=== PATIENT | male | born 2000 | race Caucasian/White ===

== ENCOUNTER 2022-08-26 23:09 | Emergency (ER) | payer OTHER ==
[2022-08-26 23:30] VITALS: BP 130/79; PULSE 91; RESP 16; TEMP 99; BMI 22.8
[2022-08-26] MEDS ORDERED: IBUPROFEN 600 MG TABLET (FP) PO ONE ×2 (23:41→23:44)
[2022-08-27] MEDS ORDERED: ACETAMINOPHEN 500 MG TABLET (FP) PO ONE (00:54)
[2022-08-27] MEDS ORDERED: ACETAMINOPHEN 500 MG TABLET (FP) ONE (00:58)
== END 2022-08-27 01:38 | disposition home or self-care (01) ==
LOC: FER 23:09
DX: S40.021A Contusion of right upper arm, initial encounter (principal); Y99.9 Unspecified external cause status
CPT/HCPCS: 73060-TC-RT-FY; 99283-25